=== PATIENT | female | born 1940 | race Caucasian/White ===

== ENCOUNTER 2016-07-23 19:23 | Inpatient (IN) | payer MEDICARE, OTHER ==
[2016-07-23 20:59] LABS: BASOPHIL 0.2 % (0-2); EOSINOPHIL 2.2 % (0-7); HCT 35.9 % (37.0-47.0); HGB 11.7 g/dl (12.5-16.0); LYMPHOCYTE 17.7 % (15-48); MCH 29.7 pg (25.0-31.0); MCHC 32.6 g/dL (32.0-36.0); MCV 91.1 fL (78.0-100.0); MONOCYTE 5.6 % (0-12); MPV 9.4 fL (6.0-9.5); NEUTROPHIL 74.3 % (41-80); PLT 330 K/uL (150-400); RBC 3.94 M/uL (4.20-5.40); RDW 14.8 % (11.5-14.0); WBC 8.6 K/uL (4.0-10.5)
[2016-07-23 21:06] LABS: ALBUMIN 4.2 g/dL (3.4-4.8); BILIRUBIN - TOTAL 0.2 mg/dL (0.1-1.0); CREATININE 2.4 mg/dL (0.5-1.0); TOTAL PROTEIN 8.2 g/dL (6.4-8.3)
[2016-07-23 21:19] LABS: POTASSIUM 6.8 mmol/L (3.5-5.1)
[2016-07-23 23:35] LABS: BILIRUBIN NEGATIVE (NEGATIVE); BLOOD TRACE-LYSED Ery/uL (NEGATIVE); CLARITY CLEAR (CLEAR); COLOR YELLOW (YELLOW); GLUCOSE (U) 1+ mg/dL (NORMAL); KETONE (U) NEGATIVE (NEGATIVE); LEUKOCYTES NEGATIVE Leu/uL (NEGATIVE); NITRITE NEGATIVE (NEGATIVE); PROTEIN NEGATIVE (NEGATIVE); UROBILINOGEN 0.2 mg/dL (0.2-1.0)
[2016-07-24 04:11] LABS: BASOPHIL 0.2 % (0-2); EOSINOPHIL 2.4 % (0-7); HCT 36.1 % (37.0-47.0); HGB 11.5 g/dl (12.5-16.0); LYMPHOCYTE 23.9 % (15-48); MCH 29.6 pg (25.0-31.0); MCHC 31.9 g/dL (32.0-36.0); MONOCYTE 7.3 % (0-12); NEUTROPHIL 66.2 % (41-80); PLT 312 K/uL (150-400); RBC 3.88 M/uL (4.20-5.40); RDW 14.9 % (11.5-14.0); WBC 8.6 K/uL (4.0-10.5)
[2016-07-24 04:24] LABS: INR 3.25 (0.9-1.2); PROTHROMBIN TIME 32.4 SECONDS (11.7-14.0); PTT 56.1 SECONDS (23.2-31.4)
[2016-07-24 04:48] LABS: ALBUMIN 3.9 g/dL (3.4-4.8); BILIRUBIN - TOTAL 0.2 mg/dL (0.1-1.0); GLOBULIN (CALCULATION) 3.8 g/dL (2.2-4.2); POTASSIUM 6.3 mmol/L (3.5-5.1); TOTAL PROTEIN 7.7 g/dL (6.4-8.3)
[2016-07-24 13:42] LABS: CREATININE 1.7 mg/dL (0.5-1.0); POTASSIUM 5.7 mmol/L (3.5-5.1)
[2016-07-25 04:12] LABS: BASOPHIL 0.5 % (0-2); EOSINOPHIL 3.5 % (0-7); HCT 31.6 % (37.0-47.0); HGB 9.7 g/dl (12.5-16.0); LYMPHOCYTE 24.5 % (15-48); MCH 29.3 pg (25.0-31.0); MCHC 30.7 g/dL (32.0-36.0); MCV 95.5 fL (78.0-100.0); MONOCYTE 9.2 % (0-12); MPV 9.3 fL (6.0-9.5); NEUTROPHIL 62.3 % (41-80); PLT 252 K/uL (150-400); RBC 3.31 M/uL (4.20-5.40); RDW 14.9 % (11.5-14.0); WBC 8.1 K/uL (4.0-10.5)
[2016-07-25 04:20] LABS: INR 3.28 (0.9-1.2); PROTHROMBIN TIME 32.6 SECONDS (11.7-14.0)
[2016-07-25 04:29] LABS: CREATININE 1.4 mg/dL (0.5-1.0); MAGNESIUM 1.93 mg/dL (1.40-2.10); POTASSIUM 4.8 mmol/L (3.5-5.1)
== END 2016-07-25 17:15 | disposition other institution (70) | DRG 560 ==
LOC: FER 19:23 → FTCU 23:40
PROVIDERS: Emergency Medicine Emergency Medical Services; ADMIT Internal Medicine Nephrology
DX: T84.52XA Infection and inflammatory reaction due to internal left hip prosthesis, initial encounter (principal); N17.9 Acute kidney failure, unspecified; E87.5 Hyperkalemia; E87.1 Hypo-osmolality and hyponatremia; E11.9 Type 2 diabetes mellitus without complications; E86.0 Dehydration; I10 Essential (primary) hypertension; M19.90 Unspecified osteoarthritis, unspecified site; F32.9 Major depressive disorder, single episode, unspecified; K21.9 Gastro-esophageal reflux disease without esophagitis; E78.5 Hyperlipidemia, unspecified; Z79.01 Long term (current) use of anticoagulants; Z96.642 Presence of left artificial hip joint; Z83.3 Family history of diabetes mellitus; Z82.49 Family history of ischemic heart disease and other diseases of the circulatory system; K44.9 Diaphragmatic hernia without obstruction or gangrene; M10.9 Gout, unspecified; Z90.710 Acquired absence of both cervix and uterus
CPT/HCPCS: 36415; 73502; 80048; 80053; 81003; 82962; 83605; 83735; 83880; 84132; 85025; 85610; 85651; 85730; 86140; 87040; 87070; 87088; 87205; 93005; 94640; 97116; 97162; 97166; 97530-GP; 97535; J0610; J0692; J1170; J2270; J2405; J2543; J3370; J7060